=== PATIENT | male | born 1960 | race Caucasian/White ===

== ENCOUNTER → 2018-01-28 | Outpatient (CLI) | payer MEDICARE, OTHER ==
[~2018-01-28] MED LIST: ALDACTONE100 MG PO; ASPIR 8181 M1 PO; ATIVAN2 MG PO; BESIVANCE5 ML RIGHT EYE; Cepacol Lozenge, Sore Throat Lozenge MM; DAILY MULTIPLE1 EAC2 PO; FLEXERIL10 MG PO; FOLIC ACID1 MG PO; FOLVITE1 M1 PO; Flagyl PO; GABAPENTIN600 MG PO; ILEVRO1.7 ML RIGHT EYE; LIBRIUM25 MG PO; Levaquin PO; MELATONIN5 M1 PO; NAPROSYN375 MG PO; NAPROSYN500 MG PO; NICOTINE PATCH1 EAC1 TD; NO HOME MEDS; NO MEDICATIONS; NOHOMEMEDS; OMEPRAZOLE40 M1 PO; OXYCODONE HCL5 MG PO; PANTOPRAZOLE SO40 MG PO; PREDNISOLONE AC15 ML RIGHT EYE; PRILOSEC40 MG PO; Protonix PO; THERAGRAN1 TABLET PO; THIAMINE HCL100 MG PO; TRAMADOL HCL50 MG PO; ZANTAC150 MG PO; ZOFRAN4 MG PO
== END | disposition home or self-care (01) ==
LOC: CDC 09:58
DX: Z01.810 Encounter for preprocedural cardiovascular examination (principal); R22.0 Localized swelling, mass and lump, head
CPT/HCPCS: 93000

== ENCOUNTER 2018-02-09 08:48 | Day surgery (SDC) | payer OTHER ==
[~2018-02-09] VITALS: Ht 167.6 cm; Wt 64.0 kg
[~2018-02-09 08:48] MED LIST changes: +MOBIC15 MG PO; +PROZAC20 MG PO; +TRAZODONE HCL50 MG PO
[2018-02-09 09:07] VITALS: BP 132/86
[2018-02-09 09:46] LABS: INTER. NORMALIZED RATIO 1.2
[2018-02-09 09:49] LABS: ALBUMIN 3.8 G/DL (3.2-4.8); ALKALINE PHOSPHATASE 77 IU/L (3-129); ALT (GPT) 11 IU/L (3-49); AST (GOT) 16 IU/L (2-34); DIRECT BILIRUBIN 0.2 mg/dL (0.0-0.3); TOTAL BILIRUBIN 0.6 MG/DL (0.0-1.0); TOTAL PROTEIN 6.5 G/DL (6.4-8.3)
[2018-02-09 10:25] VITALS: BP 115/78
[2018-02-09 10:40] VITALS: BP 149/78
== END 2018-02-09 10:56 | disposition home or self-care (01) ==
LOC: SDC
PROVIDERS: Surgery
PROC: 0JB10ZZ Excision of Face Subcutaneous Tissue and Fascia, Open Approach (ICD-10-PCS; principal; 2018-02-09)
DX: L72.0 Epidermal cyst (principal); K70.30 Alcoholic cirrhosis of liver without ascites; K40.90 Unilateral inguinal hernia, without obstruction or gangrene, not specified as recurrent; F17.200 Nicotine dependence, unspecified, uncomplicated
CPT/HCPCS: 80076; 85610; 88304; J0690; J1100; J1885; J2250; J2405; J3010